=== PATIENT | male | born 1990 | race Caucasian/White ===

== ENCOUNTER 2023-06-15 05:03 | Emergency (ER) | payer MEDICAID ==
[2023-06-15 05:34] VITALS: RESP 17; TEMP 98.7
[2023-06-15] MEDS ORDERED: TORAdol 30 mg Injection ONE (05:49)
[2023-06-15] MEDS ORDERED: Augmentin 875-125 Tablet ONE (05:49)
[2023-06-15] MEDS: Augmentin 875-125 Tablet PO ONE (05:51)
[2023-06-15] MEDS: TORAdol 30 mg Injection IM ONE (05:51)
--- NOTE | 2023-06-15 05:53 | ERPHSYRPT ---
- History of Present Illness Time Seen by Provider: 06/15/23 05:30 Source: patient Exam Limitations: no limitations Patient Subjective Stated Complaint: toothache that started 4 hrs ago Triage Nursing Assessment: pt ambulatory to bed by self with steady gait holding L side of face, pt alert and oriented x3, skin pwd, pt c/o LL toothache that started around 0130, pt has hx of dental abscesses and cavities Physician History: 32-year-old male presents to the emergency department for evaluation of dental pain. Patient states his dental pain started today. Patient describes an ache sensation at the left lower jaw tooth #18. Patient has multiple carious teeth. No trauma no fever. Pain worse with mastication pain improved with rest. No headache. No neck pain. No chest pain or shortness of breath. Symptoms are mild to moderate in intensity. Patient voices no other complaints or concerns at this time. Portions of this note were created with voice recognition technology. There may be grammatical, spelling, punctuation or sound alike errors Timing/Duration: today Severity: moderate Modifying Factors: Improves With: nothing Associated Symptoms: denies symptoms Allergies/Adverse Reactions: No Known Drug Allergies Allergy (Unverified 04/02/12 12:25) Hx Tetanus, Diphtheria Vaccination/Date Given: No (UNKNOWN) Hx Influenza Vaccination/Date Given: No Hx Pneumococcal Vaccination/Date Given: No Immunizations Up to Date: No Travel Risk - International Travel Have you traveled outside of the country in past 3 weeks: No - Emerging Infectious Disease Are you exhibiting symptoms associated with any current EIDs: No - Review of Systems Constitutional: No Symptoms, No Fever, No Chills Eyes: No Symptoms Ears, Nose, & Throat: No Symptoms Respiratory: No Symptoms, No Cough, No Dyspnea Cardiac: No Symptoms, No Chest Pain, No Edema, No Syncope Abdominal/Gastrointestinal: No Symptoms, No Abdominal Pain, No Nausea, No Vomiting, No Diarrhea Genitourinary Symptoms: No Symptoms, No Dysuria Musculoskeletal: No Symptoms, No Back Pain, No Neck Pain Skin: No Symptoms, No Rash Neurological: No Symptoms, No Dizziness, No Focal Weakness, No Sensory Changes Psychological: No Symptoms Endocrine: No Symptoms Hematologic/Lymphatic: No Symptoms Immunological/Allergic: No Symptoms All Other Systems: Reviewed and Negative - Past Medical History Pertinent Past Medical History: No Other Medical History: ex drug user - Past Surgical History Past Surgical History: Yes Neuro Surgical History: No Pertinent History Cardiac: No Pertinent History Respiratory: No Pertinent History Gastrointestinal: No Pertinent History Genitourinary: No Pertinent History Musculoskeletal: Orthopedic Surgery Male Surgical History: No Pertinent History Other Surgical History: R hand-boxer's fx - Social History Smoking Status: Current every day smoker How long have you smoked: 4 YEARS Exposure to second hand smoke: Yes Drug Use: none Patient Lives Alone: No - Nursing Vital Signs Nursing Vital Signs: Initial Vital Signs Temperature 98.7 F 06/15/23 05:15 Pulse Rate 77 06/15/23 05:15 Respiratory Rate 17 06/15/23 05:15 Blood Pressure 148/97 06/15/23 05:15 O2 Sat by Pulse Oximetry 100 06/15/23 05:15 Pain Scale Pain Intensity 10 - Physical Exam General Appearance: no apparent distress, alert Eye Exam: PERRL/EOMI, eyes nml inspection Ears, Nose, Throat Exam: normal ENT inspection, TMs normal, pharynx normal, moist mucous membranes Neck Exam: normal inspection, non-tender, supple, full range of motion Respiratory Exam: normal breath sounds, lungs clear, airway intact, No respiratory distress Cardiovascular Exam: regular rate/rhythm, normal heart sounds, normal peripheral pulses Gastrointestinal/Abdomen Exam: soft, normal bowel sounds, No tenderness, No mass Back Exam: normal inspection, normal range of motion, No CVA tenderness, No vertebral tenderness Extremity Exam: normal inspection, normal range of motion, pelvis stable Neurologic Exam: alert, oriented x 3, cooperative, normal mood/affect, sensation nml, No motor deficits Skin Exam: normal color, warm, dry, No rash Lymphatic Exam: No adenopathy SpO2 Interpretation: normal SpO2: 100 O2 Delivery: Room Air - Course Nursing assessment & vital signs reviewed: Yes Ordered Tests: Medication Summary Discontinued Medications Generic Name Dose Route Start Last Admin Trade Name Freq PRN Reason Stop Dose Admin Amoxicillin/Clavulanate Potassium 875 mg 06/15/23 05:43 Amox Tr/Potassium Clavulanate 875 Mg Tablet PO 06/15/23 05:44 STAT ONE Ketorolac Tromethamine 60 mg 06/15/23 05:42 Ketorolac Tromethamine 30 Mg/Ml Inj IM 06/15/23 05:43 STAT ONE - Progress Progress: improved Progress Note: Patient is a 32-year-old male presents to our ED for evaluation of dental pain. Physical exam reveals carious teeth and the beginning of a dental abscess at tooth #18. Patient received a IM dose of Toradol and oral dose of Augmentin. A prescription for the same forwarded to patient's pharmacy. Patient agrees to follow-up with his dentist within 48 hours for reevaluation. Patient voices no other complaints or concerns at this time. Portions of this note were created with voice recognition technology. There may be grammatical, spelling, punctuation or sound alike errors Complexity of problem addressed is moderate acute complicated. No critical care time. Complexity of data reviewed and analyzed is none. No specialized testing ordered. Diagnosis made based on history and physical. Risk of complication and or risk of morbidity/mortality of patient management is moderate. A prescription for Augmentin and Toradol forwarded to patient's pharmacy. Vital stable. Time spent to discharge patient is approximately 20 minutes. Plan of care established for shared decision making. No social determinants of health present impede follow-up. Portions of this note were created with voice recognition technology. There may be grammatical, spelling, punctuation or sound alike errors 06/15/23 05:49 Counseled pt/family regarding: diagnosis, need for follow-up - Departure Departure Disposition: Home Clinical Impression: Pain, dental, Dental abscess, Carious teeth Condition: Stable Critical Care Time: No Instructions: Tooth Abscess (DC), Tooth Decay, Adult (DC), Dental Pain (DC) Additional Instructions: Discharge/Care Plan KATYA OLEA was seen on 06/15/23 in the Emergency Room. The patient was counseled regarding Diagnosis,Lab results, Imaging studies, need for follow up and when to return to the Emergency Room. Prescriptions given: Discharge Note I have spoken with the patient and/or caregivers. I have explained the patient's condition, diagnosis and treatment plan based on the information available to me at this time. I have answered the patient's and/or caregiver's questions and addressed any concerns. The patient and/or caregivers have as good understanding of the patient's diagnosis, condition and treatment plan as can be expected at this point. The vital signs have been stable. The patient's condition is stable and appropriate for discharge from the emergency department. The patient will pursue further outpatient evaluation with the primary care physician or other designated or consulting physician as outlined in the discharge instructions. The patient and/or caregivers are agreeable to this plan of care and follow-up instructions have been explained in detail. The patient and/or caregivers have received these instruction. The patient/and or caregivers are aware that any significant change in condition or worsening of symptoms should prompt an immediate return to this or the closest emergency department or call 911.
[2023-06-15 06:11] VITALS: BP 130/92; PULSE 70; O2SAT 97
== END 2023-06-15 06:19 | disposition home or self-care (01) ==
LOC: ED 05:03
DX: K04.7 Periapical abscess without sinus (principal); K02.9 Dental caries, unspecified; K08.89 Other specified disorders of teeth and supporting structures; Z72.0 Tobacco use
CPT/HCPCS: 96372; 99283; J1885; A9270-GY